=== PATIENT | female | born 1965 | race Caucasian/White ===

== ENCOUNTER 2018-03-20 05:38 | Emergency (ER) | payer BC ==
[2018-03-20 06:00] VITALS: RESP 16; O2SAT 96
--- NOTE | 2018-03-20 06:20 | C.PDOC ---
History Of Present Illness 53 year old female presents to the ER after having an episode of nose bleed from the right nostril while getting ready for work this morning. Patient applied pressure with improvement of bleeding, while in the taxi on her way to work bleeding recurred to left nostril which concerned her and prompted visit. Patient notes bleeding resolved upon arrival. Denies headache, dizziness, facial trauma, or use of anticoagulants. Time Seen by Provider: 03/20/18 05:56 Chief Complaint (Nursing): ENT Problem History Per: Patient History/Exam Limitations: None Onset/Duration Of Symptoms: Hrs Current Symptoms Are (Timing): Gone Anticoagulant/Antiplatlet Use?: No Past Medical History Reviewed: Historical Data, Nursing Documentation, Vital Signs Vital Signs: Last Vital Signs Temp 97.7 F 03/20/18 05:44 Pulse 102 H 03/20/18 05:54 Resp 16 03/20/18 05:54 BP 149/92 H 03/20/18 05:54 Pulse Ox 96 03/20/18 06:29 Family History: States: Unknown Family Hx - Social History Hx Alcohol Use: No Hx Substance Use: No - Immunization History Hx Tetanus Toxoid Vaccination: No Hx Influenza Vaccination: No Hx Pneumococcal Vaccination: No Review Of Systems Constitutional: Negative for: Fever, Chills ENT: Positive for: Other (Nose bleed) Respiratory: Negative for: Cough Neurological: Negative for: Headache, Dizziness Physical Exam - Physical Exam Appears: Non-toxic Skin: Normal Color, Warm, Dry Head: Atraumatic, Normacephalic Eye(s): bilateral: Normal Inspection Nose: Normal, No Discharge, No Epistaxis, No Septal Hematoma Oral Mucosa: Moist Throat: Normal, No Erythema, No Exudate Neck: Normal, Supple Neurological/Psych: Oriented x3, Normal Speech ED Course And Treatment O2 Sat by Pulse Oximetry: 96 (Room air) Pulse Ox Interpretation: Normal Progress Note: Patient observed for 45 minutes after arrival. Pt is resting comfortably in the ER with no active bleeding at this time, patient reassured and instructed to follow up with PMD or return if symptoms worsen. Disposition - Disposition Referrals: PMD, private doctor [Other] Disposition: HOME/ ROUTINE Disposition Time: 06:31 Condition: STABLE Additional Instructions: May use saline nose spray Use vaseline lightly in nares for moisture Return to ER if recurrent or persistent nosebleed, headache, dizzy or worse Instructions: Nosebleeds (DC) Forms: [facility] ([place]) - Clinical Impression Clinical Impression: Epistaxis - PA / DISTILLATION OPERATOR / Resident Statement MD/DO has reviewed & agrees with the documentation as recorded. - Scribe Statement The provider has reviewed the documentation as recorded by the Scribe Brian Levy All medical record entries made by the Scribe were at my direction and personally dictated by me. I have reviewed the chart and agree that the record accurately reflects my personal performance of the history, physical exam, medical decision making, and the department course for this patient. I have also personally directed, reviewed, and agree with the discharge instructions and disposition.
[2018-03-20 06:37] VITALS: BP 152/83; PULSE 85; TEMP 98.5
== END 2018-03-20 06:41 | disposition home or self-care (01) ==
LOC: C.ER 05:38
DX: R04.0 Epistaxis (principal)